=== PATIENT | female | born 1980 | race Caucasian/White ===

== ENCOUNTER 2022-11-15 18:15 | Emergency (ER) | payer SELFPAY ==
[~2022-11-15] VITALS: Ht 157.5 cm; Wt 81.6 kg
--- NOTE | 2022-11-15 18:56 | NUR ---
BIBFAMILY C/O "Started having pain on left lower abdomen yesterday going to back". AMBULATORY, PLACED ON BED, IN PAIN 06/01 PS
--- NOTE | 2022-11-15 18:57 | NUR ---
CLEANER AT BEDSIDE
[2022-11-15 19:58] LABS: BASOPHILS % (AUTO) 0.5 % (0.0-2.0); EOSINOPHILS % (AUTO) 7.8 % (0.0-6.0); HEMATOCRIT 40 % (33-45); HEMOGLOBIN 13.4 g/dL (11.5-14.8); LYMPHOCYTES # (AUTO) 3.3 K/uL (0.8-4.8); LYMPHOCYTES % (AUTO) 34.2 % (20.0-44.0); MEAN CORPUSCULAR HGB CONC 34 g/dl (31.0-36.0); MEAN CORPUSCULAR VOLUME 78 fL (82-100); MONOCYTES # (AUTO) 0.5 K/uL (0.1-1.30); MONOCYTES % (AUTO) 5.6 % (2.0-12.0); NEUTROPHILS % (AUTO) 51.9 % (43.0-81.0); PLATELET COUNT (AUTO) 219 K/uL (150-450); RED BLOOD CELL COUNT(AUTO) 5.12 MIL/uL (4.0-5.2); WHITE BLOOD COUNT (AUTO) 9.7 K/uL (4.3-11.0)
--- NOTE | 2022-11-15 19:58 | NUR ---
URINE SAMPLE SENT TO LAB
[2022-11-15] MEDS ORDERED: KETOROLAC TROMETHAMINE INJ 30 MG/ML VIAL ONE (20:13)
[2022-11-15 20:18] LABS: CREATININE 0.8 mg/dL (0.6-1.3); POTASSIUM 3.2 mmol/L (3.5-5.1)
[2022-11-15 20:24] LABS: ALBUMIN 3.2 g/dL (3.4-5.0); BILIRUBIN,DIRECT 0.1 mg/dL (0.0-0.2); BILIRUBIN,TOTAL 0.4 mg/dL (0.2-1.0); TOTAL PROTEIN, SERUM 6.8 g/dL (6.4-8.2)
[2022-11-15] MEDS ORDERED: POTASSIUM CHLORIDE 20 MEQ TAB.PRT.SR PO ONE ×2 (20:30→20:44)
[2022-11-15] MEDS ORDERED: MORPHINE SULFATE INJ 2 MG/ML DISP.SYRIN IV ONE (20:30)
[2022-11-15] MEDS ORDERED: KETOROLAC TROMETHAMINE INJ 60 MG/2 ML VIAL IM ONE (20:30)
[2022-11-15 20:46] LABS: BILIRUBIN,URINE NEGATIVE (NEGATIVE); COLOR,URINE YELLOW (YELLOW); LEUKOCYTE ESTERASE ,URINE NEGATIVE (NEGATIVE); NITRITE, URINE POSITIVE (NEGATIVE); PROTEIN,URINE NEGATIVE (NEGATIVE); UGLUCOSE NEGATIVE (NEGATIVE); UROBILINOGEN,URINE 0.2 EU/dL (0.2)
[2022-11-15 20:55] LABS: BACTERIA,URINE 1+ /HPF (None Seen); RBC,URINE 0-2 /HPF (0-2); SQUAMOUS EPITHELIAL CELL,UR 0-2 /HPF (None Seen); WBC,URINE 0-2 /HPF (0-3)
[2022-11-15] MEDS ORDERED: AMOX-430 PO (21:48)
[2022-11-15] MEDS ORDERED: IBUP-1953 PO (21:48)
[2022-11-15 22:04] VITALS: BP 110/70
--- NOTE | 2022-11-15 22:04 | NUR ---
Patient discharged to home in stable condition. Written and verbal after care instructions given. Patient verbalizes understanding of instruction.
== END 2022-11-15 22:03 | disposition home or self-care (01) ==
LOC: ER 18:49
DX: K57.32 Diverticulitis of large intestine without perforation or abscess without bleeding (principal); J45.909 Unspecified asthma, uncomplicated; Z88.8 Allergy status to other drugs, medicaments and biological substances; Z79.899 Other long term (current) drug therapy
CPT/HCPCS: 99284; 74176; 96372; 85025; 80048; 87086; 83690; 80076; 81001; 36415; J1885